=== PATIENT | female | born 1985 | race Caucasian/White ===

== ENCOUNTER 2018-03-03 21:44 | Observation (INO) | payer MEDICAID ==
[2018-03-03] MEDS: SOD CHLORIDE 0.9% 1,000 ML IV (22:27)
[2018-03-03] MEDS: ONDANSETRON 4 MG INJ IV (22:27)
[2018-03-03] MEDS: morphine 4 MG/ML VIAL IV (22:28)
[2018-03-03 22:33] LABS: ADD MAN DIFF? NO
[2018-03-03 22:44] LABS: BASOPHIL # 0.1 10^3/ul (0.0-0.1); BASOPHILS % 0.5 % (0.0-2.0); EOSINOPHILS # 0.2 10^3/ul (0.0-0.5); EOSINOPHILS % 1.5 % (0.0-7.0); HEMATOCRIT 34.6 % (37.0-47.0); HEMOGLOBIN 11.1 g/dl (12.0-16.0); LYMPHOCYTES # 2.7 10^3/ul (0.8-2.9); MEAN CORPUSCULAR HEMOGLOBIN 30.8 pg (29.0-33.0); MEAN CORPUSCULAR HGB CONC 32.1 g/dl (32.0-37.0); MEAN CORPUSCULAR VOLUME 96.1 fl (82.0-101.0); MEAN PLATELET VOLUME 10.9 fl (7.4-10.4); MONOCYTE # 0.8 10^3/ul (0.3-0.9); MONOCYTES % 5.2 % (0.0-11.0); NEUTROPHIL # 11.3 10^3/ul (1.6-7.5); NEUTROPHILS % 74.2 % (39.0-77.0); PLATELET COUNT 296 10^3/UL (140-415)
[2018-03-03 22:44] LABS: WHITE BLOOD COUNT 15.2 10^3/ul (4.8-10.8)
[2018-03-03 23:50] LABS: ADD UMIC YES; UR ASCORBIC ACID 40 mg/dL (NEGATIVE); UR BILIRUBIN (Dip) NEGATIVE (NEGATIVE); UR BLOOD (Dip) NEGATIVE (NEGATIVE); UR CLARITY SLIGHTLY CLOUDY (CLEAR); UR COLOR YELLOW (YELLOW); UR GLUCOSE (Dip) NEGATIVE (NEGATIVE); UR KETONES (Dip) NEGATIVE (NEGATIVE); UR LEUKOCYTE ESTERASE (Dip) NEGATIVE Leu/ul (NEGATIVE); UR MUCUS MANY /HPF (NONE SEEN); UR NITRITE (Dip) NEGATIVE (NEGATIVE); UR RBC 1 /HPF (0-5); UR SPECIFIC GRAVITY (Dip) 1.025 (1.003-1.030); UR SQUAMOUS EPITHELIAL CELL FEW /HPF (FEW); UR TOTAL PROTEIN (Dip) 2+ mg/dl (NEGATIVE); UR UROBILINOGEN (Dip) 1+ mg/dL (NEGATIVE); UR WBC 4 /HPF (0-5)
[2018-03-04 00:12] LABS: HEMATOCRIT 30.7 % (37.0-47.0)
[2018-03-04] MEDS ORDERED: ACETAMINOPHEN 325 MG TAB PO ×2 (05:00→19:00)
[2018-03-04] MEDS ORDERED: ONDANSETRON 4 MG INJ IV ×2 (05:00→18:00)
[2018-03-04] MEDS: SOD CHLORIDE 0.9% 500 ML IV (05:21)
[2018-03-04] MEDS ORDERED: SUCCINYLCHOLINE CHLORIDE 100 MG/5 ML SYG IV (07:00)
[2018-03-04] MEDS: LACTATED RINGER'S 1,000 ML IV ×3 (10:21→21:43)
[2018-03-04] MEDS ORDERED: PROPOFOL 20 ML (17:52)
[2018-03-04] MEDS ORDERED: ONDANSETRON 4 MG INJ (17:52)
[2018-03-04] MEDS ORDERED: GLYCOPYRROLATE 0.4 MG INJ (17:52)
[2018-03-04] MEDS ORDERED: ROCURONIUM 50 MG INJ (17:52)
[2018-03-04] MEDS ORDERED: NEOSTIGMINE 3 MG/3 ML SYRINGE (17:52)
[2018-03-04] MEDS ORDERED: DEXAMETHASONE 4 MG/ML 1 ML INJ (17:52)
[2018-03-04] MEDS ORDERED: MIDAZOLAM 1 MG/ML 2 ML INJ (17:52)
[2018-03-04] MEDS ORDERED: FENTAnyl 50 MCG/ML VIAL ×2 (17:52→18:29)
[2018-03-04] MEDS ORDERED: CEFAZOLIN 1 GM INJ (17:52)
[2018-03-04] MEDS ORDERED: HYDROmorphONE 1 MG/5 ML IV SYRINGE IV ×3 (18:00)
[2018-03-04] MEDS ORDERED: TRIMETHOBENZAMIDE 100 MG/ML VIAL IM (18:00)
[2018-03-04] MEDS ORDERED: MIDAZOLAM 1 MG/ML 2 ML INJ IV (18:00)
[2018-03-04] MEDS ORDERED: hydrALAzine 20 MG INJ IV (18:00)
[2018-03-04] MEDS ORDERED: FENTAnyl 50 MCG/ML VIAL IV ×3 (18:00)
[2018-03-04] MEDS ORDERED: LABETALOL HCL 20MG INJ IV (18:00)
[2018-03-04] MEDS ORDERED: DIPHENHYDRAMINE 50 MG INJ IV (18:00)
[2018-03-04] MEDS ORDERED: MEPERIDINE 25 MG INJ IV (18:00)
[2018-03-04] MEDS ORDERED: ALBUTEROL 0.083% (NEB) 2.5 MG/3 ML AMP HHN (18:00)
[2018-03-04] MEDS ORDERED: IPRATROPIUM (NEB) 0.5 MG/2.5 ML AMP HHN (18:00)
[2018-03-04] MEDS ORDERED: EPHEDrine SULFATE 50 MG/5 ML SYG IV (18:00)
[2018-03-04] MEDS ORDERED: OXYCODONE/ACETAMINOPHEN (5/325) TAB PO ×2 (18:00)
[2018-03-04] MEDS ORDERED: OXYTOCIN 10 UNIT INJ (18:18)
[2018-03-04] MEDS ORDERED: SILVER NITRATE SWAB (18:21)
[2018-03-04] MEDS: DOXYCYCLINE 100 MG in SOD CHLORIDE 0.9% 250 ML IVPB (18:54)
[2018-03-05] MEDS: LACTATED RINGER'S 1,000 ML IV (10:13)
[2018-03-05] MEDS: ONDANSETRON 4 MG INJ IV (12:14)
[2018-03-05] MEDS: HYDROCODONE/APAP (5/325) TAB PO (12:14)
== END 2018-03-05 16:30 | disposition home or self-care (01) ==
LOC: E/R 21:44 → PP2 03-04 04:59
PROVIDERS: Obstetrics & Gynecology Obstetrics
DX: O03.4 Incomplete spontaneous abortion without complication (principal)
CPT/HCPCS: 36415; 76801; 76817; 81001; 84702; 85014; 85018; 85025; 86850; 86900; 86901; 88305; 96374; 96375; 99285-25; G0378